=== PATIENT | male | born 1965 | race Caucasian/White ===

== ENCOUNTER → 2024-01-10 16:35 | Outpatient (CLI) | payer OTHER, SELFPAY ==
[2024-01-10 18:13] LABS: C-Reactive Protein Quant 0.6 mg/dL (<1.0)
[2024-01-10 18:15] LABS: Rheumatoid Factor < 8.6 IU/mL (<12.0)
[2024-01-13 15:46] LABS: Scleroderma 70 Antibody < 0.2 AI (0.0-0.9)
[2024-01-14 14:36] LABS: ANA Screen, IFA Negative (.)
== END ==
PROVIDERS: PCP Nurse Practitioner Family; Referring Provider Internal Medicine Critical Care Medicine; Visit Provider Internal Medicine Critical Care Medicine
DX: J84.9 Interstitial pulmonary disease, unspecified (principal); I27.20 Pulmonary hypertension, unspecified; J43.9 Emphysema, unspecified; F17.218 Nicotine dependence, cigarettes, with other nicotine-induced disorders; R91.8 Other nonspecific abnormal finding of lung field
CPT/HCPCS: 36415; 81332; 82103; 86038; 86140; 86235; 86430

== ENCOUNTER → 2024-03-10 13:48 | Outpatient (CLI) | payer OTHER, SELFPAY | LOC: RESP 13:49 | PROVIDERS: PCP Nurse Practitioner Family; Referring Provider Internal Medicine Critical Care Medicine; Visit Provider Internal Medicine Critical Care Medicine | DX: J84.9 Interstitial pulmonary disease, unspecified (principal); F17.210 Nicotine dependence, cigarettes, uncomplicated; R94.2 Abnormal results of pulmonary function studies; J43.9 Emphysema, unspecified; I27.20 Pulmonary hypertension, unspecified; R91.8 Other nonspecific abnormal finding of lung field | CPT/HCPCS: 94060; 94726; 94729 ==

== ENCOUNTER → 2024-03-27 14:54 | Outpatient (CLI) | payer OTHER, SELFPAY ==
--- NOTE | 2024-03-27 14:55 | DI.CT.S_ITS ---
PROCEDURE: CT CHEST HIGH RESOLUTION INDICATIONS: ILD TECHNIQUE: Noncontrast 1.0 and 5.0 mm thick contiguous axial sections from the pulmonary apex to the posterior costophrenic angles, with 7 mm thick coronal and sagittal MIP reformats. 1 mm thick dynamic expiratory images acquired through the upper, mid, and lower lungs. 1.0 mm thick axial sections acquired from the yariel to the posterior costophrenic angles in the prone end-inspiration position. For radiation dose reduction, the following was used: automated exposure control, adjustment of mA and/or kV according to patient size. COMPARISON: Outside Facility, CT, CT CHEST WO CON, 06/28/2023, 15:57. FINDINGS: Image quality: Diagnostic. Lower Neck: No enlarged lymph nodes. Thyroid: No thyroid nodules which require sonographic follow up, per consensus guidelines. Axillae: No enlarged lymph nodes. Chest Wall: Unremarkable. Bones: No suspicious osseous lesion. Lungs and Pleura: No pneumothorax or pleural effusions. A few small pulmonary nodules. For example: Right middle lobe nodular opacity measuring 1.4 cm, (3/135), unchanged. Platelike appearance on the coronal images. -Right lower lobe 0.7 cm, (3/198), unchanged. -Right lower lobe 0.9 cm, (3/203), unchanged. Extensive diffuse reticular thickening. Honeycombing and traction bronchiectasis. Findings not significantly changed compared to 06/28/2023. No air trapping appreciated. The central airways are clear. Heart: Heart size is enlarged. No pericardial effusion. Thoracic Vessels: The aorta and pulmonary arteries demonstrate normal size. Mediastinum and Yolanda: No enlarged lymph nodes. Esophagus: No wall thickening. No hiatal hernia. Upper Abdomen: Large gallstone. IMPRESSION: 1. No significant interval change compared to June 2023. Honeycombing and traction bronchiectasis. Findings most consistent with UIP pattern interstitial lung disease. 2. Right middle lobe nodular opacity or pulmonary nodule measuring 1.4 cm is unchanged. 3. Large gallstone. Dictated by: Matt Melo M.D. on 03/30/2024 at 16:52 Approved by: Matt Melo M.D. on 03/30/2024 at 17:06
== END ==
LOC: CT 14:54
PROVIDERS: PCP Nurse Practitioner Family; Referring Provider Internal Medicine Critical Care Medicine; Visit Provider Internal Medicine Critical Care Medicine
DX: J84.9 Interstitial pulmonary disease, unspecified (principal); K80.20 Calculus of gallbladder without cholecystitis without obstruction
CPT/HCPCS: 71250

== ENCOUNTER 2024-09-19 10:57 | Emergency (ER) | payer OTHER, SELFPAY ==
[2024-09-19] VITALS (9 sets, daily range): BP systolic 102–114; BP diastolic 70–81; PULSE 77–99; RESP 18–25; TEMP 36.6; O2SAT 79–94; BMI 32.3
--- NOTE | 2024-09-19 11:35 | EKG_ITS ---
[address] [address] Test Date: 2024-09-19 Pat Name: Joselito Gleason Department: Room: Gender: Male [employer] Tender Head: : 1965 Requested By: Order Number: [id number] Reading MD: Amado Durham MD Measurements Intervals [place] Rate: 91 P: 74 LA: 134 QRS: 145 QRSD: 116 T: 10 QT: 380 QTc: 467 Interpretive Statements Normal sinus rhythm Right bundle branch block NO PRIOR TRACING Electronically Signed On 09-20-2024 8:27:27 PDT by Amado Durham MD
--- NOTE | 2024-09-19 11:50 | DI.RAD.S_ITS ---
PROCEDURE: XR CHEST 1V INDICATIONS: Shortness of breath TECHNIQUE: One view of the chest was acquired. COMPARISON: , CT, CT CHEST HIGH RESOLUTION, 03/27/2024, 14:58. FINDINGS AND IMPRESSION: Moderate interstitial opacities, representing interstitial lung disease as seen on prior chest CT. Mild superimposed lower lung opacities likely representing additional infection or ILD exacerbation. Low lung volumes. Cardiomegaly. No pleural effusions. Degenerative osseous changes. Dictated by: Rakan Meredith M.D. on 09/19/2024 at 11:20 Approved by: Rakan Meredith M.D. on 09/19/2024 at 11:21
[2024-09-19 11:55] LABS: Add Manual Diff / Slide Review NO; Hematocrit 54.0 % (41-53); Hemoglobin 18.2 g/dL (13.5-17.5); Lymphocytes Absolute Auto 1100 /uL (1100-4500); Mean Corpuscular HGB Conc 33.7 % (30-36); Mean Corpuscular Hemoglobin 33.7 PG (26-34); Mean Corpuscular Volume 100.1 fL (80-100); Platelet Count 162 X10^3/uL (150-400)
--- NOTE | 2024-09-19 11:55 | ED.SOB ---
HPI - SOB/Dyspnea General Chief Complaint: Shortness of Breath/Dyspnea Stated Complaint: Legs/feet swollen and stiff; SOB Time Seen by Provider: 09/19/24 11:04 History of Present Illness HPI Narrative: 59-year-old gentleman history of idiopathic pulmonary fibrosis with extensive history of smoking since the age of 20 chronically on 2 L O2 seen multiple times in the ER [facility] given nebs antibiotics steroids Lasix for chronic leg swelling for the past 2 3 months but still feeling symptomatic no worse but feels like his swelling has not gone down completely and wanted to be re-evaluated and have a 2nd opinion. He denies fever chills shortness of breath dyspnea on exertion worse than his baseline cough runny nose sore throat and active chest pain. He is currently on Lasix right now for which he was told to increase from 20 to 40 mg but has not noticed any significant difference. Other than what is stated 14 point review of system is negative Related Data Home Medications ?Medication ?Instructions ?Recorded ?Confirmed albuterol sulfate 90 mcg/actuation 2 puff inhalation Q4-6H PRN 01/10/24 04/17/24 aerosol inhaler furosemide 20 mg tablet 20 mg PO DAILY 01/10/24 04/17/24 losartan 50 mg tablet 50 mg PO DAILY 01/10/24 04/17/24 potassium chloride 10 mEq 10 meq PO DAILY 01/10/24 04/17/24 capsule,extended release Previous Rx's ?Medication ?Instructions ?Recorded amoxicillin 875 mg-potassium 1 tab PO BID #14 tabs 09/19/24 clavulanate 125 mg tablet azithromycin 250 mg tablet 250 mg PO DAILY 4 days #4 tabs 09/19/24 azithromycin 250 mg tablet 250 mg PO DAILY 4 days #4 tabs 09/19/24 prednisone 20 mg tablet 40 mg (2 x 20 mg) PO DAILY #4 tabs 09/19/24 Allergies Allergy/AdvReac Type Severity Reaction Status Date / Time No Known Drug Allergies Allergy Unverified 04/17/24 15:42 Review of Systems Review of Systems ROS Unobtainable: All systems reviewed & are unremarkable except as noted in HPI and below Exam Narrative Exam Narrative: GENERAL: [59] year old patient appears stated age. Well-developed patient, in mild distress. HEAD: Atraumatic. Normocephalic. EYES: Pupils equal round and reactive. Extraocular motions intact. No scleral icterus. No injection or drainage. ENT: Nose without bleeding, purulent drainage. Throat without erythema, tonsillar hypertrophy or exudate. Airway patent. NECK: Trachea midline. Non tender CARDIOVASCULAR: Regular rate and rhythm without murmurs, gallops, or rubs. Plus one pitting edema bilateral bilateral lower extremity RESPIRATORY: Clear to auscultation. Breath sounds equal bilaterally. No wheezes, rales, or rhonchi. GASTROINTESTINAL: Abdomen soft, non-tender, nondistended. EXTREMITIES: No edema or joint tenderness. BACK: Nontender without deformity or crepitance. No flank tenderness. NEURO: AOx3. SKIN: No rash or erythema of visible areas Initial Vital Signs Initial Vital Signs: Vital Signs Temperature 97.9 F 09/19/24 11:20 Pulse Rate 99 H 09/19/24 11:20 Respiratory Rate 24 09/19/24 11:20 Blood Pressure 114/75 09/19/24 11:20 Pulse Oximetry 79 L 09/19/24 11:20 Oxygen Delivery Method Room Air 09/19/24 11:20 Course Orders Ordered: ED Orders 09/19/24 11:30 Complete Blood Count AUTO DIFF Stat Comprehensive Metabolic Panel Stat Lactate (Lactic Acid) Stat NT-proBNP (BNP-Adult 18+) Stat Prothrombin Time INR Stat Troponin I Stat 09/19/24 11:50 XR chest 1V Stat EKG-12 Lead Stat RT Consult Eval and Treat STAT Discontinued Medications Bumetanide (Bumetanide 1 Mg/4 Ml Vial) 1 mg IV NOW ONE Stop: 09/19/24 11:56 Last Admin: 09/19/24 12:54 Dose: 1 mg Documented By: SAJAN Vital Signs Vital signs: Vital Signs - 8 hr 09/19/24 11:20 09/19/24 11:59 09/19/24 12:00 Temperature 97.9 F Pulse Rate 99 H 77 96 H Respiratory Rate 24 Blood Pressure 114/75 Pulse Oximetry 79 L 87 L 89 L Oxygen Delivery Method Room Air Nasal Cannula Nasal Cannula Oxygen Flow Rate 6 2 09/19/24 12:03 09/19/24 12:03 09/19/24 12:30 Temperature Pulse Rate 92 H 83 Respiratory Rate 21 18 Blood Pressure 102/81 Pulse Oximetry 91 92 Oxygen Delivery Method Nasal Cannula Nasal Cannula Oxygen Flow Rate 2 2 09/19/24 12:30 Temperature Pulse Rate Respiratory Rate Blood Pressure 105/74 Pulse Oximetry Oxygen Delivery Method Oxygen Flow Rate MDM - SOB/Dyspnea Lab Data 09/19/24 11:30 09/19/24 11:30 Labs: Lab Results 09/19/24 Range/Units 11:30 WBC 6.2 (4.5-11.0) X10^3/uL RBC 5.39 (4.5-5.9) X10^6/uL Hgb 18.2 H (13.5-17.5) g/dL Hct 54.0 H (41-53) % MCV 100.1 H (80-100) fL MCH 33.7 (26-34) PG MCHC 33.7 (30-36) % RDW 16.1 H (11.6-14.8) % Plt Count 162 (150-400) X10^3/uL Neut % (Auto) 65.7 (50-75) % Lymph % (Auto) 17.8 L (25-40) % [place] % (Auto) 12.9 (3-14) % Eos % (Auto) 2.4 (2-4) % Baso % (Auto) 1.2 (0-2) % Neut # (Auto) 4100 (8522-0750) /uL Lymph # (Auto) 1100 (9673-2619) /uL [place] # (Auto) 800 (0-900) /uL Eos # (Auto) 200 (0-450) /uL Baso # (Auto) 100 (0-100) /uL PT 13.8 H (9.4-12.5) SECONDS INR 1.2 (0.9-1.3) Sodium 133 L (137-145) mmol/L Potassium 3.7 (3.4-5.1) mmol/L Chloride 90 L (98-107) mmol/L Carbon Dioxide 35 H (22-32) mmol/L BUN 9 (9-20) mg/dL Creatinine 0.92 (0.66-1.25) mg/dL Estimated GFR > 60 (>60) mL/min BUN/Creatinine Ratio 9.8 (6-22) Glucose 114 H (70-99) mg/dL Lactate 1.5 (0.7-2.1) mmol/L Calcium 9.5 (8.4-10.2) mg/dL Total Bilirubin 5.0 H (0.2-1.3) mg/dL AST 40 (17-59) IU/L ALT 22 (<50) IU/L Alkaline Phosphatase 100 (38-126) U/L Troponin I < 0.012 (0.01-0.034) ng/mL NT-Pro-B Natriuret Pep 2700 H (<125) pg/mL Total Protein 7.4 (6.3-8.2) g/dL Albumin 4.4 (3.5-5.0) g/dL Globulin 3.0 (1.7-4.1) g/dL Albumin/Globulin Ratio 1.5 (1.0-2.8) Imaging Data Chest x-ray: Radiologist's Impression: [address] [address] XRay Report Signed Patient: Joselito Gleason MR#: [id number] : 1965 Acct:[id number] Age/Sex: 59 / M Date of Service: 09/19/24 Loc: ED Accession Number: [id number] Procedure: XR chest 1V Ordering Provider: Amado Worrell D.O. PROCEDURE: XR CHEST 1V INDICATIONS: Shortness of breath TECHNIQUE: One view of the chest was acquired. COMPARISON: [facility], CT, CT CHEST HIGH RESOLUTION, 03/27/2024, 14:58. FINDINGS AND IMPRESSION: Moderate interstitial opacities, representing interstitial lung disease as seen on prior chest CT. Mild superimposed lower lung opacities likely representing additional infection or ILD exacerbation. Low lung volumes. Cardiomegaly. No pleural effusions. Degenerative osseous changes. ECG Data Interpretation: NSR RBBB HR 91 WA 134 QRS [address]-t wave change No previous ekg to compare MDM Narrative Medical decision making narrative: All lab work, vital signs, nurse triage note, medication list, previous ER visits and all imaging studies reviewed. Patient given Bumex Rocephin and Zithromax here. Patient will be discharged on augmentin, zpack and prednisone and to follow up with PCP next week. Differential diagnosis includes CHF pneumonia COPD CKD. Normal white count sodium 133 troponin normal BNP 2700. Chest x-ray showed moderate interstitial opacities representing interstitial lung disease as seen on prior chest CT. Mild superimposed lower lung opacities likely representing additional infection or his interstitial lung disease exacerbation. Discharge Plan Departure Patient Disposition: Home Clinical Impression: IPF (idiopathic pulmonary fibrosis) Pneumonia Qualifiers: Pneumonia type: due to Pneumococcus Laterality: bilateral Lung location: lower lobe of lung Qualified Code(s): J13 - Pneumonia due to Streptococcus pneumoniae Instructions: DI for Pneumonia -- Adult Activity Restrictions/Additional Instructions: Return with new or worsening symptoms. Take your medicines as directed. Follow up PCP in 1-2 weeks for follow up care. Prescriptions: New amoxicillin-pot clavulanate 875-125 mg tablet 1 tab PO BID Qty: 14 0RF azithromycin 250 mg tablet 250 mg PO DAILY 4 Days Qty: 4 0RF Rx Instructions: start on day 2 of therapy prednisone 20 mg tablet 40 mg PO DAILY Qty: 4 0RF azithromycin 250 mg tablet 250 mg PO DAILY 4 Days Qty: 4 0RF Rx Instructions: start on day 2 of therapy No Action potassium chloride 10 mEq capsule, extended release 10 meq PO DAILY losartan 50 mg tablet 50 mg PO DAILY furosemide 20 mg tablet 20 mg PO DAILY albuterol sulfate 90 mcg/actuation HFA aerosol inhaler 2 puff inhalation Q4-6H PRN Referrals: Karol Weber ARNP [Primary Care Provider, Nursing] Stand Alone Forms: Patient Portal/API
[2024-09-19 11:57] LABS: INR 1.2 (0.9-1.3); Prothrombin Time 13.8 SECONDS (9.4-12.5)
[2024-09-19 12:08] LABS: Lactate (Lactic Acid) 1.5 mmol/L (0.7-2.1)
[2024-09-19 12:09] LABS: Alanine Aminotransferase 22 IU/L (<50); Albumin 4.4 g/dL (3.5-5.0); Albumin Globulin Ratio 1.5 (1.0-2.8); Alkaline Phosphatase 100 U/L (38-126); Blood Urea Nitrogen 9 mg/dL (9-20); Calcium 9.5 mg/dL (8.4-10.2); Carbon Dioxide 35 mmol/L (22-32); Chloride 90 mmol/L (98-107); Estimated Glomerular Filt Rate > 60 mL/min (>60); Globulin 3.0 g/dL (1.7-4.1); Glucose 114 mg/dL (70-99); HEMOLYSIS 27 (0-50); Potassium 3.7 mmol/L (3.4-5.1); Sodium 133 mmol/L (137-145); Total Protein 7.4 g/dL (6.3-8.2)
[2024-09-19 12:20] LABS: NT-proBNP (BNP-Adult 18+) 2700 pg/mL (<125); Troponin I < 0.012 ng/mL (0.01-0.034)
[2024-09-19] MEDS: BUMETANIDE 1 MG/4 ML VIAL IV (12:54)
[2024-09-19] MEDS: AZITHROMYCIN 250 MG TABLET 500 MG PO (13:54)
== END 2024-09-19 14:48 | disposition home or self-care (01) ==
PROVIDERS: Emergency Provider Family Medicine; PCP Nurse Practitioner Family; Referring Provider Nurse Practitioner Family
DX: J13 Pneumonia due to Streptococcus pneumoniae (principal); J84.112 Idiopathic pulmonary fibrosis; R06.02 Shortness of breath; Z79.01 Long term (current) use of anticoagulants
CPT/HCPCS: 36415; 71045; 80053; 83605; 83880; 84484; 85025; 85610; 93005; 93010; 96365; 96375; 99285; J0696; J2919